=== PATIENT | male | born 1985 | race Caucasian/White ===

== ENCOUNTER 2018-11-27 10:59 | Emergency (ER) | payer MEDICAID ==
[~2018-11-27] VITALS: Ht 175.3 cm; Wt 97.5 kg
[2018-11-27 11:07] VITALS: BP 151/90
--- NOTE | 2018-11-27 11:23 | NUR ---
C/O HEADACHE RADIATING TO RIGHT ARM AND TEETH X2 WKS, + NAUSEA, + DIZZINESS, NO MED HX PATIENT STATES PAIN OF 9/10 AT THIS TIME; PATIENT POSITIONED FOR COMFORT; HOB ELEVATED; BEDRAILS UP X1; BED DOWN. ER MD MADE AWARE OF PT STATUS.
[2018-11-27] MEDS ORDERED: MORPHINE SULFATE 4 MG/ML SYR IVP ONE (11:40)
--- NOTE | 2018-11-27 13:17 | NUR ---
Patient being evaluated by DR AVILEZ at bedside.
[2018-11-27] MEDS ORDERED: SUMAtriptan 25 MG TAB PO ONE (13:25)
[2018-11-27 14:25] VITALS: BP 128/70
--- NOTE | 2018-11-27 14:25 | NUR ---
Patient discharged with v/s stable. Written and verbal after care instructions given and explained. Patient alert, oriented and verbalized understanding of instructions. Ambulatory with steady gait. All questions addressed prior to discharge. ID band removed. Patient advised to follow up with PMD. Rx of IMITREX given. Patient educated on indication of medication including possible reaction and side effects. Opportunity to ask questions provided and answered.
== END 2018-11-27 14:25 | disposition home or self-care (01) ==
LOC: MED 10:59
DX: G43.909 Migraine, unspecified, not intractable, without status migrainosus (principal); K08.89 Other specified disorders of teeth and supporting structures; Z88.0 Allergy status to penicillin
CPT/HCPCS: 96374; 99283; J2270